=== PATIENT | male | born 1965 | race Caucasian/White ===

== ENCOUNTER 2019-07-20 05:44 | Day surgery (SDC) | payer OTHER ==
[~2019-07-20] VITALS: Ht 177.8 cm; Wt 116.8 kg
[~2019-07-20 05:44] MED LIST: SODIUM CHLORIDE 0.9% 1,000 ML ONE
[2019-07-20] MEDS ORDERED: SODIUM CHLORIDE 0.9% 1,000 ML IV ONE (07:00)
[2019-07-20] MEDS ORDERED: LISI-662 PO (07:19)
[2019-07-20] MEDS ORDERED: ASPI-728 PO (07:19)
[2019-07-20] MEDS ORDERED: TRAZ-252 PO (07:19)
[2019-07-20] MEDS ORDERED: METO50 PO (07:19)
[2019-07-20] MEDS ORDERED: LEVO500T2 PO (07:19)
[2019-07-20] MEDS ORDERED: SERT100T12 PO (07:19)
[2019-07-20] MEDS ORDERED: MIDAZOLAM HCL 2 MG/2 ML VIAL ONE (07:36)
[2019-07-20] MEDS ORDERED: FentaNYL CITRATE-PF 100 MCG/2 ML VIAL ONE (07:36)
[2019-07-20] MEDS ORDERED: MethylPREDNISolone SOD SUCC 125 MG/2 ML VIAL IVP ONE (08:45)
[2019-07-20] MEDS ORDERED: MethylPREDNISolone SOD SUCC 125 MG/2 ML VIAL ONE (08:52)
[2019-07-20] MEDS ORDERED: LIDOCAINE 4% 50 ML SOLUTION ONE (15:58)
[2019-07-20] MEDS ORDERED: ALBUTEROL SULFATE 2.5 MG/0.5 ML NEB SOLUTION NEB ONE (15:58)
[2019-07-20] MEDS ORDERED: BENZOCAINE 20% 50 MCG/SPRAY 57 GM ONE (15:58)
[2019-07-20] MEDS ORDERED: LIDOCAINE 2% 30 ML JELLY ONE (15:58)
[2019-07-20] MEDS ORDERED: OXYGEN THERAPY IH SCH (20:00)
== END 2019-07-20 10:15 | disposition home or self-care (01) ==
LOC: SURGERY 05:44
PROVIDERS: ATTEND Internal Medicine Critical Care Medicine
DX: R05 Cough (principal); R91.1 Solitary pulmonary nodule; J34.89 Other specified disorders of nose and nasal sinuses; J98.8 Other specified respiratory disorders; J38.4 Edema of larynx; B37.0 Candidal stomatitis; J45.909 Unspecified asthma, uncomplicated; F17.210 Nicotine dependence, cigarettes, uncomplicated; Z79.899 Other long term (current) drug therapy; R19.00 Intra-abdominal and pelvic swelling, mass and lump, unspecified site
CPT/HCPCS: 31623; 31624; 71045; 87070; 87101; 87206; 87220; 88184; 88185; J2250; J2930; J3010; J7030; 87015; 87205; 88108; 88312